=== PATIENT | female | born 1985 | race Caucasian/White ===

== ENCOUNTER 2024-07-25 00:48 | Emergency (ER) | payer SELFPAY ==
[~2024-07-25] VITALS: Ht 182.9 cm; Wt 59.0 kg
[2024-07-25 01:35] LABS: HEMATOCRIT 44.4 % (36.0-47.0); HEMOGLOBIN 15.1 g/dl (12.0-15.5); MEAN CORPUSCULAR HEMOGLOBIN 32.6 pg (27.0-33.0); MEAN CORPUSCULAR VOLUME 95.9 fl (80.0-96.0); PLATELET COUNT, AUTOMATED 198 10^3/uL (150-450); RED BLOOD COUNT 4.63 10^6/uL (4.00-5.40); WHITE BLOOD COUNT 7.4 10^3/uL (4.0-10.0)
[2024-07-25 01:46] LABS: ALBUMIN 3.8 G/DL (3.2-5.2); ALKALINE PHOSPHATASE 81 U/L (35-104); ALT/SGPT 42 U/L (7.0-40); AST/SGOT 75 U/L (<34); BILIRUBIN,DIRECT 0.1 MG/DL (<0.4); BILIRUBIN,TOTAL 0.3 MG/DL (0.3-1.2); BLOOD UREA NITROGEN 7 MG/DL (9-23); CALCIUM LEVEL 8.6 MG/DL (8.5-10.1); CARBON DIOXIDE LEVEL 33 MMOL/L (20-31); CHLORIDE LEVEL 97 MMOL/L (98-107); CREATININE FOR GFR 0.61 MG/DL (0.55-1.30); GLOMERULAR FILTRATION RATE > 60.0 (>58); GLUCOSE, FASTING 107 MG/DL (60-100); POTASSIUM SERUM 3.4 MMOL/L (3.5-5.1); SALICYLATE LEVEL < 3.0 MG/DL (<30); SODIUM LEVEL 142 MMOL/L (136-145); TOTAL PROTEIN 7.2 G/DL (5.7-8.2)
[2024-07-25 01:48] LABS: THYROID STIMULATING HORMONE 3.885 uIU/ML (0.55-4.78)
[2024-07-25 02:02] LABS: ETHYL ALCOHOL (ETHANOL) 0.488 % (0.000-0.010)
[2024-07-25] MEDS ORDERED: LORazepam 2 MG TAB PO PRN (02:35)
[2024-07-25] MEDS: THIAMINE 100 MG TAB PO SCH (02:41)
[2024-07-25 05:39] LABS: AMPHETAMINES LEVEL URINE NEGATIVE (NEGATIVE); BARBITURATES URINE NEGATIVE (NEGATIVE); BENZODIAZEPINES URINE NEGATIVE (NEGATIVE); COCAINE METABOLITE URINE NEGATIVE (NEGATIVE)
[2024-07-25 05:40] LABS: METHADONE URINE NEGATIVE (NEGATIVE); OPIATES URINE NEGATIVE (NEGATIVE); PHENCYCLIDINE URINE NEGATIVE (NEGATIVE)
[2024-07-25 05:43] LABS: CANNABINOIDS URINE POSITIVE (NEGATIVE)
[2024-07-25] MEDS: MULTIVITAMINS/MINERALS THERAP 1 TAB PO SCH (09:11)
[2024-07-25] MEDS: FOLIC ACID 1MG TAB PO SCH (09:11)
[2024-07-25 09:30] LABS: HCG, SERUM QUALITATIVE NEGATIVE (NEGATIVE)
[2024-07-25 11:02] VITALS: BP 124/85; TEMP 97.7; O2SAT 98
[2024-07-26] MEDS ORDERED: UNRESOLVED CLARIFICATION ENTRY XX SCH (00:01)
== END 2024-07-25 11:09 | disposition home or self-care (01) ==
LOC: M ED 00:48
DX: F10.129 Alcohol abuse with intoxication, unspecified (principal)